=== PATIENT | male | born 1980 | race Caucasian/White ===

== ENCOUNTER 2017-01-13 22:09 | Emergency (ER) | payer SELFPAY ==
[2017-01-13 22:15] VITALS: BP 146/78; PULSE 93; BMI 28.1
[2017-01-13] MEDS ORDERED: IBUPROFEN 600 MG TABLET (FP) PO ONE ×2 (22:40→22:47)
[2017-01-13] MEDS ORDERED: OXYCODONE/APAP 5/325MG COMBO TABLET PO ONE (22:40)
[2017-01-13] MEDS ORDERED: OXYCODONE/APAP 5/325MG COMBO TABLET ONE (22:46)
--- NOTE | 2017-01-13 22:47 | PDOC ---
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 Patient states through translation that he was playing soccer with his 2yr old son, when the ball was kicked across the street. Patient went after ball, tripped and fell injuring his face. He was seen and evaluated at [facility] and released with pain medication. Patient presents today c/o increase swelling, and pain with bruising. Patient denies any other complaints at this time. Occurred: reports: last week. denies: just prior to arrival, this morning, this afternoon, this evening, yesterday, other Severity: reports: severe. denies: mild, moderate Pain Location: reports: face. denies: none, abdomen, back, chest, head, lower extremity, mouth, neck, other, pelvis, upper extremity Method of Injury: Yes: fall. No: unknown, assault, direct blow, motor vehicle crash, other Modifying Factors: worse with: None, cold therapy, immobilization, pain medication, rest, other Loss of Consciousness: no loss of consciousness Associated Symptoms (Fall): denies symptoms Past History - Travel Traveled outside of the country in the last 30 days: No Close contact w/someone who was outside of country & ill: No - Past Medical History Allergies/Adverse Reactions: Allergies Allergy/AdvReac Type Severity Reaction Status Date / Time No Known Allergies Allergy Verified 01/13/17 22:11 Home Medications: Ambulatory Orders Ibuprofen 800 mg PO Q8H PRN #21 tablet 01/13/17 Oxycodone HCl/Acetaminophen [Percocet 10-325 mg Tablet] 1 each PO Q4H PRN #18 tablet MDD 6 tabs 01/13/17 - Psycho/Social/Smoking Cessation Hx Suicidal Ideation: No Smoking History: Never smoked Trauma Specific PMHX - Complaint Specific PMHX Arthritis: No Back Injury: No Neck Injury: No Hx Sacro Iliac Joint Dysfunction: No Review of Systems - Review of Systems Able to Perform ROS?: Yes Is the patient limited Ecuadorean proficient: No Musculoskeletal: Yes: Other (Facial pain and swelling.) All Other Systems: Reviewed and Negative *Physical Exam - Vital Signs Last Vital Signs Temp Pulse Resp BP Pulse Ox 93 H 18 146/78 97 01/13/17 22:12 01/13/17 22:12 01/13/17 22:12 01/13/17 22:12 - Physical Exam General Appearance: Yes: Nourished, Appropriately Dressed, Mild Distress. No: Apparent Distress, Moderate Distress, Severe Distress HEENT: positive: Normal ENT Inspection, Normal Voice, Symmetrical, TMs Normal, Pharynx Normal. negative: EOMI (Unable to evaluate right eye due to swelling.) , SARITHA (Unable to evaluated right eye due to swelling.), Pale Conjunctivae, Photophobia, Scleral Icterus (R), Scleral Icterus (L), Nasal Congestion, Rhinorrhea, Sinus Tenderness, Orbits (Right orbit not able to evaluate due to swelling.), TM Bulging, TM Dull, TM Erythema Neck: positive: Trachea midline, Supple. negative: Lymphadenopathy (R), Lymphadenopathy (L) Respiratory/Chest: positive: Lungs Clear, Normal Breath Sounds. negative: Chest Tender, Respiratory Distress, Accessory Muscle Use, Labored Respiration, Rapid RR Cardiovascular: positive: Regular Rhythm, Regular Rate Gastrointestinal/Abdominal: positive: Normal Bowel Sounds, Soft. negative: Distended, Guarding, Rebound, Tenderness Musculoskeletal: positive: Normal Inspection. negative: CVA Tenderness Extremity: positive: Normal Capillary Refill, Normal Inspection, Normal Range of Motion. negative: Pedal Edema, Swelling, Calf Tenderness, Erythema, Inflammation Integumentary: positive: Normal Color, Dry, Warm Neurologic: positive: bisque ware dipper II-XII NML intact, Fully Oriented, Alert, Normal Mood/ Affect, Normal Response, Motor Strength 5/5 ED Treatment Course - RADIOLOGY Radiology Studies Ordered: Category Date Time Status CERVICAL SPINE CT W/O CONTR [CT] Stat CT Scan 01/13/17 22:[address] W/O CONTRAST [CT] Stat CT Scan 01/13/17 22:[address] WITHOUT CONTRAST [CT] Stat CT Scan 01/13/17 22:40 Ordered *DC/Admit/Observation/Transfer Diagnosis at time of Disposition: Nasal bone fracture Qualifiers: Encounter type: initial encounter Fracture type: closed Qualified Code(s): S02.2XXA - Fracture of nasal bones, initial encounter for closed fracture Head injury Qualifiers: Encounter type: initial encounter Qualified Code(s): S09.90XA - Unspecified injury of head, initial encounter Facial hematoma Qualifiers: Encounter type: initial encounter Qualified Code(s): S00.83XA - Contusion of other part of head, initial encounter - Discharge Dispostion Disposition: HOME Condition at time of disposition: Stable Admit: No - Prescriptions Prescriptions: Ibuprofen 800 mg PO Q8H PRN #21 tablet PRN Reason: Mild Pain Oxycodone HCl/Acetaminophen [Percocet 10-325 mg Tablet] 1 each PO Q4H PRN #18 tablet MDD 6 tabs PRN Reason: Severe Pain - Referrals Referrals: Vic Ch MD [Staff Physician] - Kimberli Smith MD [Staff Physician] - - Patient Instructions Printed Discharge Instructions: DI for Nose Fracture, DI for Closed Head Injury Additional Instructions: Seguimiento con el Dr. Ch ([place], [place] [facility] [place]) con respecto a la punta nasal fracturada. Tambin, el seguimiento con el Dr. Jordan dentro de 3 curiel para la evaluacin del kelle derecho. Aplique compresas fras en la cy afectada cada 3 horas jason 20 minutos. Motrin para el dolor con Percocet para el dolor de la brecha. Descanse mucho. No estornudar, soplar la nariz, toser con fuerza, o [place] mientras uisng nubia para evitar aumento de la hinchazn en la mireya. No hay trabajo x 5 curiel. Debe hacer un seguimiento con estos mdicos ortega pronto tomy sea posible. Follow up with Dr. Ch (Ears, Nose and Throat) regarding fractured nasal tip. Also, follow up with Dr. Jordan within 3 days for evaluation of right eye. Apply cold compress to affected area every 3 hours on and off for 20 mins. Motrin for pain with Percocet for breakthrough pain. Get plenty rest. Do not sneeze, blow nose, cough forcefully, or [place] while uisng bathroom to avoid increased swelling in face. No work x 5 days. You must follow up with these physicians as soon as possible. Print Language: UPPER SORBIAN - Post Discharge Activity Work/School Note: Back to Work
[2017-01-13] MEDS ORDERED: TETANUS AND DIPHTHERIA TOXOID 0.5 ML DISP.SYRIN IM ONE (22:51)
== END 2017-01-14 00:41 | disposition home or self-care (01) ==
LOC: JER 22:09
PROC: 3E0234Z Introduction of Serum, Toxoid and Vaccine into Muscle, Percutaneous Approach (ICD-10-PCS; principal; 2017-01-13)
DX: S02.2XXA Fracture of nasal bones, initial encounter for closed fracture (principal); S00.83XA Contusion of other part of head, initial encounter; S05.11XA Contusion of eyeball and orbital tissues, right eye, initial encounter; W18.39XA Other fall on same level, initial encounter; Y93.66 Activity, soccer; Y92.414 Local residential or business street as the place of occurrence of the external cause
CPT/HCPCS: 70450-TC; 70486-TC; 72125-TC; 99282-25